=== PATIENT | female | born 1950 | race Caucasian/White ===

== ENCOUNTER 2024-06-02 13:15 | Outpatient (RCR) | payer MEDICARE, SELFPAY ==
[2024-05-19 13:09] VITALS: BP 172/93; PULSE 84; RESP 18; TEMP 36.1
--- NOTE | 2024-05-19 14:21 | HP.PCM_ITS ---
History of Present Illness Date of Service: 05/19/24 Chief Complaint: Right leg erythema/rash History of Wound: Patient is a 73-year-old female who was referred by Dr. Alexei Kerr ([facility] [address]) for a cellulitis on her left leg. She has a torn meniscus and is in need of surgery, but she is not able to have a wound at the time of the surgery. She states that she first noticed the area 2-3 months ago. She thought it was poison prem. She states that her had a similar patch on his arm and then she noticed it on her leg. She saw Dr. Kerr a couple weeks ago and he referred her to us for her cellulitis. Her PCP placed her on Doxycycline, which she has completed. Since seeing him she has been placing Triamcinolone cream on the area for the past week and it has resolved the rash. She has a history of HTN and Hypothyroidism. She denies fever, chills, nausea or vomiting. Progress of Wound: Left anterior leg just distal to her knee there is a patch of slight redness, no pustules. [facility] Medical History (Updated 05/22/24 @ 21:44 by Luz Santos OYSTER BUYER, OYSTER BUYER-C) Hypertension Hypothyroid Family History (Updated 05/22/24 @ 21:16 by Luz Santos NP, OYSTER BUYER-C) Mother CVA (cerebral vascular accident) Father Cancer Brother Cancer Social History (Updated 05/22/24 @ 21:17 by Luz Santos NP, OYSTER BUYER-C) Smoking Status: Never smoker ROS Constitutional Constitutional: Denies chills or fever(s) Eyes Eyes: Reports requires corrective lenses ENT HEENT: Reports none Cardiovascular Cardiovascular: Denies chest pain, dyspnea or leg edema Respiratory/Chest Respiratory/Chest: Denies cough or dyspnea Gastrointestinal Gastrointestinal: Reports none Genitourinary Genitourinary: Reports none Musculoskeletal Musculoskeletal: Reports difficulty walking, joint pain and joint stiffness Integumentary Integumentary: Reports rash Neurologic Neurologic: Reports none Psychiatric Psychiatric: Reports none Endocrine Endocrinology: Reports as per HPI Hematologic/Lymphatic Hematologic/Lymphatic: Reports none Allergic/Immunologic Allergic/Immunologic: Reports none Vital Signs Vital Signs Vital Signs: 05/19/24 13:09 Temperature 97 F L Temperature Source Temporal Pulse Rate 84 Respiratory Rate 18 Blood Pressure 172/93 H Blood Pressure Mean 119 Blood Pressure Source Monitor Blood Pressure Position Sitting Blood Pressure Location Left Arm Oxygen Delivery Method Room Air Physical Exam Const alert, oriented x3 and no apparent distress General Appearance: cooperative and well kempt Orientation / Consciousness: awake HEENT normocephalic Head and Scalp: atraumatic Eyes General Eye: normal appearance of both eyes Neck full ROM Resp normal respiratory effort, normal air movement and clear to auscultation bilaterally Effort and Inspection: able to speak in complete sentences Cardio regular rate and regular rhythm GI soft to palpation and non-tender Back/Spine normal ROM Extremity normal capillary refill Peripheral Pulses: Yes pulses 2+ throughout Skin Skin Narrative: Left proximal anterior leg has mild erythema. Area is slightly raised. No pustules. Area almost resolved with use of Triamcinolone cream. No clinical sign of infection. Neuro oriented x3 Psych mental status grossly normal, thought process normal and cooperative Debridement Note Debridement Note No debridement was completed: No debridement was completed today Post-Debridement Measurements and Additional Note: Post-Debridement Measurements/Treatment - Nurse 1 - General Ulcer Assessment Start: 05/19/24 13:08 Freq: Status: Active Protocol: OMAR Activity Type Activity Date Activity User E-sign Co-sign Detail Recorded Client Recorded Date Recorded By Document 05/19/24 13:09 MI [id number] 05/19/24 13:27 MI 05/19/24 13:09 - Today's Visit Information Type of service Follow-up Visit (Physician/[facility] APPRENTICE ) Arrival Mode Ambulatory Accompanied by dina friend Patient Identification Verified (Name & Yes ) Safety Precautions Fall Prevention Vital Signs Temperature (97.8 F-99.1 F) 97 F L Temperature Source Temporal Pulse Rate (60-100) 84 Pulse Location Monitor Respiratory Rate (12-18) 18 Respiratory rate source Observation Oxygen Delivery Method Room Air Blood Pressure (90/60-120/80) 172/93 H Blood Pressure Mean 119 Source Monitor Position Sitting Blood Pressure Location Left Arm History Since Last Visit- (Skip if this is Patient's initial visit) Has dressing in place as prescribed Yes Has compression in place as prescribed Yes Has offloadiing in place as prescribed Yes Experienced any changes in pain level or Yes management Left Footwear Regular Shoe Right Footwear Regular Shoe Pain Scale: 0-10 Numeric Is Patient Pain Free? Yes - Nurse 1 - General Ulcer Measurement Start: 05/19/24 13:08 Freq: Status: Active Protocol: Activity Type Activity Date Activity User E-sign Co-sign Detail Recorded Client Recorded Date Recorded By Document 05/19/24 13:09 MI [id number] 05/19/24 13:27 MI 05/19/24 13:09 Wound Center Nurse 1 #1 Left Lower [place] -Current Size (cm) - Length 0.1 -Current Size (cm) - Width 0.1 -Current Size (cm) - Depth 0.1 -Total Square Cm 0.01 -Date of Last Picture (Recall this 05/19/24 field) -Photo Taken Yes -Tunneling No -Undermining/Tunneling No -Circular Undermining No -Exudate Amt None Present -Wound Margin Flat & Intact -Granulation Amt None Present (0 %) -Slough/Fibrin No -Texture (Destiney-wound Skin Appearance) Assessed -Moisture (Destiney-wound Skin Appearance) Assessed -Color (Destiney-wound Skin Appearance) No Abnormality -Temperature (Destiney-wound Skin No Abnormality Appearance) (Pt Warm) -Tenderness on Palpation (Destiney-wound No Skin Appearance) -Ulcer Cleansing Rinsed/ Irrigated with Saline -Foul Odor after Cleansing No -Anesthetic Used 5% Lidocaine Gel WC - Nurse 2 - General Ulcer CM Notes Start: 05/19/24 13:08 Freq: Status: Active Protocol: Activity Type Activity Date Activity User E-sign Co-sign Detail Recorded Client Recorded Date Recorded By Document 05/19/24 13:31 [id number] 05/19/24 13:36 05/19/24 13:31 Wound Center Nurse 2 -Time 13:32 -Correct Patient Yes -Correct Side, Site, Position Yes -Wound Comment(s) No wound red area 0.5 x 3.0 Pain Scale: 0-10 Numeric Is Patient Pain Free? Yes - Nurse 3 - General Ulcer D/C NN Start: 05/19/24 13:08 Freq: Status: Active Protocol: Activity Type Activity Date Activity User E-sign Co-sign Detail Recorded Client Recorded Date Recorded By Document 05/19/24 13:39 [id number] 05/19/24 13:39 05/19/24 13:39 Is Patient Pain Free? Yes - Visit Discharge Discharge Condition Stable Ambulatory Status Ambulatory Transportation Private Auto Charges/Coding Visit Charges Office Visits / Consults: [id number] OV L3 New 30min Assessment/Plan Assessment/Plan (1) Rash and nonspecific skin eruption: CODE(S): R21 - Rash and other nonspecific skin eruption PLAN: Plan Patient evaluated at the wound healing center. She has been using Triamcinolone cream daily on the area twice daily and has been having improvement in the area. Will have her continue to use the cream for an additional week. She will stop using the cream for a week after that. She will follow up 2 weeks with me so I can re-evaluate the area to see if it needs further treatment.
--- NOTE | 2024-05-20 11:28 | WC ---
PHOTO 05/19/24 LEFT MENDES
[2024-06-02 13:22] VITALS: BP 168/80; PULSE 97; RESP 16; TEMP 36.1
--- NOTE | 2024-06-02 16:44 | PN.PCM_ITS ---
History of Present Illness Date of Service: 06/02/24 Chief Complaint: Right leg erythema/rash History of Wound: Patient is a 73-year-old female who was referred by Dr. Alexei Kerr (ortho) for a cellulitis on her left leg. She has a torn meniscus and is in need of surgery, but she is not able to have a wound at the time of the surgery. She states that she first noticed the area 2-3 months ago. She thought it was poison prem. She states that her had a similar patch on his arm and then she noticed it on her leg. She saw Dr. Kerr a couple weeks ago and he referred her to us for her cellulitis. Her PCP placed her on Doxycycline, which she has completed. Since seeing him she has been placing Triamcinolone cream on the area for the past week and it has resolved the rash. She has a history of HTN and Hypothyroidism. She denies fever, chills, nausea or vomiting. Progress of Wound: Left anterior leg just distal to her knee the patch of slight redness resolved with the use of the triamcinolone cream. She has not used the cream in over a w torres martinez. She is healed. Objective Data Objective Data Vital Signs: Vital Signs Temp Pulse Resp BP O2 Del Method 97 F L 97 16 168/80 H Room Air 06/02/24 13:22 06/02/24 13:22 06/02/24 13:22 06/02/24 13:22 06/02/24 13:22 Oxygen Delivery Method Room Air Charges/Coding Visit Charges Office Visits / Consults: [id number] OV L2 Est 10min Physical Exam Const alert, oriented x3 and no apparent distress General Appearance: cooperative and well kempt Orientation / Consciousness: awake HEENT normocephalic Head and Scalp: atraumatic Eyes General Eye: normal appearance of both eyes Neck full ROM Resp normal respiratory effort, normal air movement and clear to auscultation bilaterally Effort and Inspection: able to speak in complete sentences Cardio regular rate and regular rhythm Back/Spine normal ROM Extremity normal capillary refill Peripheral Pulses: Yes pulses 2+ throughout Skin Skin Narrative: Left proximal anterior leg erythema has resolved. Neuro oriented x3 Psych mental status grossly normal, thought process normal and cooperative Assessment/Plan Assessment/Plan (1) Rash and nonspecific skin eruption: CODE(S): R21 - Rash and other nonspecific skin eruption PLAN: Plan Patient evaluated at the wound healing center. She stopped using the Triamcinolone cream over a week ago and she remains completely healed. She may now follow up with Dr. Kerr to discuss her options for her treatment for her knee. Follow up as needed .
== END 2024-06-02 16:33 | disposition home or self-care (01) ==
LOC: WC 13:15
PROVIDERS: Visit Provider Nurse Practitioner Family
DX: R21 Rash and other nonspecific skin eruption (principal); I10 Essential (primary) hypertension
CPT/HCPCS: 99203; 99212; G0463

== ENCOUNTER → 2024-12-21 | Outpatient (CLI) | payer MEDICARE, SELFPAY ==
--- NOTE | 2024-12-21 13:44 | VDLE_ITS ---
Reason For Study Reason For Study: BLE Swelling RIGHT LEFT CFV is compressible, spontaneous, phasic, competent CFV is compressible, phasic, and INCOMPETENT for and demonstrates normal augmentation. greater than 1.0 second. FV is compressible, spontaneous, phasic, competent FV is compressible, spontaneous, phasic, competent and demonstrates normal augmentation. and demonstrates normal augmentation. POP V is compressible, spontaneous, phasic, competent POP V is compressible, spontaneous, phasic, competent and demonstrates normal augmentation. and demonstrates normal augmentation. T/P Trunk is compressible. T/P Trunk is compressible. PTV is compressible. PTV is compressible. RT PerV is compressible. LT PerV is compressible. SFJ is INCOMPETENT and measures 0.96 cm. SFJ is INCOMPETENT and measures 0.87 cm. GSV proximal thigh measures 0.25 x 0.28 cm. GSV proximal thigh measures 0.39 x 0.36 cm. GSV at knee measures 0.60 x 0.73 cm. GSV at knee measures 0.65 x 0.59 cm. GSV INCOMPETENT throughout for greater than 0.5 GSV INCOMPETENT throughout for greater than 0.5 seconds. seconds. ASV proximal thigh is INCOMPETENT for greater than Perforating vessel distal calf is INCOMPETENT for 0.5 seconds and measures 0.67 x 0.69 cm. greater than 0.5 seconds and measures 0.41 cm. ASV proximal calf is INCOMPETENT for greater than 0.5 SSV mid calf is competent and measures 0.23 x 0.26 seconds and measures 0.44 x 0.50 cm. cm. Perforating vessel distal calf is INCOMPETENT for greater than 0.5 seconds and measures 0.41 cm. SSV mid calf is competent and measures 0.31 x 0.30 cm. Procedure Exam performed in department. This is a venous duplex using B-mode, color flow and spectral Doppler. The exam was diagnostic. Patient was scanned in reverse Trendelenburg position during reflux assessment. VL/Venous Duplex US - Rolando Extrem Interpretation Summary Deep veins of the bilateral lower extremities are patent and compressible segme ntally. There is no evidence of bilateral lower extremity deep vein thrombosis. The bilateral great saphenous veins appea r patent and compressible segmentally. Positive for reflux in the right saphenofemoral junction, great saphenous vein throughout, accessory saphenous vein in thigh, accessory saphenous vein in calf, brush cleaner vein distal calf. Positive for reflux in the left common femoral vein, saphenofemoral junction, g reat saphenous vein throughout, brush cleaner vein in distal calf. Ordering Physician: Lisbeth Fairchild Referring Physician: Priya Garcia Performed By: Jose Alejandro Martinez RVT
== END | disposition home or self-care (01) ==
LOC: CVS 13:43
PROVIDERS: Referring Provider Physician Assistant; Visit Provider Physician Assistant
DX: R60.0 Localized edema (principal); I87.2 Venous insufficiency (chronic) (peripheral)
CPT/HCPCS: 93970

== ENCOUNTER 2025-05-05 10:12 | Day surgery (SDC) | payer MEDICARE, SELFPAY ==
[2025-05-04 10:29] VITALS: BMI 40.8
--- NOTE | 2025-05-05 12:27 | HP.PCM_ITS ---
HPI - General HPI Narrative MARCO PARSONS, is a 74 F who presents with venous insufficiency with stasis dermatitis, worsening despite compression. [facility] Medical History Hypertension Hypothyroid Home Medications ?Medication ?Instructions ?Recorded ?Last Taken ?Type levothyroxine 75 mcg tablet 75 mcg PO QDAY 12/08/24 Un known History losartan 50 mg tablet 50 mg PO QDAY 12/08/24 Unkno wn History Allergy/AdvReac Type Severity Reaction Status Date / Time latex Allergy Other Verified 02/16/25 10:45 Penicillins Allergy Rash Verified 02/16/25 10:45 Family History Mother CVA (cerebral vascular accident) Father Cancer Brother Cancer Social History Smoking Status: Former smoker Tobacco: How many years used: 30 ROS Constitutional Constitutional: Denies chills, fever(s), frequent falls, lethargy or weakness Eyes Eyes: Denies blind spots, change in vision or loss of vision ENT HEENT: Denies bleeding gums, hoarseness or sore throat Cardiovascular Cardiovascular: Denies abdominal pain, bluish discoloration of hand/feet, chest pain with activity, claudication, cold extremities, cyanosis, dyspnea on exertion, erythema on extremities, irregular heart rhythm, leg edema, leg ulcers, numbness in extremities or weakness in extremities Respiratory/Chest Respiratory/Chest: Denies cough, excessive phlegm production, shortness of breath at rest, shortness of breath with exertion or wheezing Gastrointestinal Gastrointestinal: Denies anorexia, change in stool character, constipation, diarrhea, melena or rectal bleeding Genitourinary Genitourinary: Denies dysuria or hematuria Musculoskeletal Musculoskeletal: Denies abnormal gait Integumentary Integumentary: Reports other Details: ; Denies erythema, non-healing lesions or wounds Neurologic Neurologic: Denies abnormal speech, focal weakness, headache(s), loss of vision, numbness, paresthesias or sensory deficit Hematologic/Lymphatic Hematologic/Lymphatic: Denies easy bleeding, easy bruising or lymphadenopathy Vital Signs Vital Signs Vital Signs: Weight Weight: 223 lb Body Mass Index (BMI) 40.8 Physical Exam Const alert, oriented x3, no apparent distress and healthy appearing General Appearance: cooperative; Negative for combative or lethargic Orientation / Consciousness: awake Exam Limitations: no limitations HEENT Head and Scalp: normocephalic and atraumatic Eyes EOMs intact bilaterally General Eye: normal appearance of both eyes Neck full ROM, no lymphadenopathy, thyroid normal and No no carotid bruits General: trachea midline; Negative for lymphadenopathy or tenderness Thyroid: thyroid normal Lymph Lymphatic: Negative for no lymphadenopathy noted Resp normal respiratory effort and no use of accessory muscles Effort and Inspection: Negative for labored, stridor or audible wheezes Cardio regular rate and regular rhythm Back/Spine Cervical Spine: cervical ROM normal Extremity full ROM, normal capillary refill and no clubbing, cyanosis or edema Skin no rashes or lesions noted Neuro oriented x3, CN's II-XII intact bilaterally, no focal motor deficits and no sensory deficits noted Psych thought process normal, cooperative, affect normal, speech normal and activity/motor behavior normal Assessment & Plan Assessment/Plan (1) Venous insufficiency: PLAN: -with stasis dermatitis -GSV chemical ablation
--- NOTE | 2025-05-05 17:42 | OP.PCM_ITS ---
Operative Report (Standard) Operative Information Date of Procedure: 05/05/25 Pre-Operative Diagnosis: venous insufficiency with stasis dermatitis, left lower extremity Post-Operative Diagnosis: same Surgery/Procedure Performed: left great saphenous chemical ablation engineer chief: No Type of Anesthesia: Local and Sedation,Conscious Procedure Start Time: 12:30 Procedure Stop Time: 13:00 Select all DRAINS/GRAFTS/IMPLANTS that apply: None Estimated Blood Loss: 1 Specimen collected: No Description of surgery: HPI: Patient is a 74-year-old female with venous insufficiency with stasis dermatitis of left lower extremity which has worsened despite compression stockings. She has great saphenous vein reflux throughout so she presents now for chemical ablation. Description of procedure: Upon obtaining informed consent and verification correct patient procedure site the patient was taken to the Floor Care Technician where she was positioned prepped and draped in usual sterile fashion. Timeout was performed consultation ministered Versed and fentanyl. The right side of the vein was evaluated ultrasound found to be continuous with no significant branching or tortuosity. Skin overlying the great saphenous vein at the ankle was anesthetized 1% lidocaine the vessel accessed under ultrasound guidance with a micropuncture needle wire. This then exchanged for the 7 Bengali ablation sheath which was advanced without resistance. Through the sheath a [employer] wire was advanced under ultrasound guidance to the saphenofemoral junction. Over the wire the glue delivery guide was advanced and positioned inferior to the saphenofemoral junction per cooker mechanic's instructions. The wire and dilator were then withdrawn and the glue delivery catheter advanced into position and appropriate distance from the saphenofemoral junction. Glue was then deposited along the treatment zone from inferior to the saphenofemoral junction to just above the sheath. Upon completion the saphenofemoral junction was interrogated and found to be patent with no evidence of blue or thrombus in the junction or the deep system. The sheath was then withdrawn and manual pressure held until hemostasis was observed. Dry sterile dressing and Latrell wrap were then applied the patient was taken to recovery with plan discharge to home. Surgical Findings: see above Complications Complications: No
== END 2025-05-05 13:10 | disposition home or self-care (01) ==
PROVIDERS: Referring Provider Surgery Trauma Surgery; Visit Provider Surgery Trauma Surgery
DX: I87.2 Venous insufficiency (chronic) (peripheral) (principal); Z87.891 Personal history of nicotine dependence; I10 Essential (primary) hypertension
CPT/HCPCS: 36482; C1894

== ENCOUNTER → 2025-05-09 | Outpatient (CLI) | payer MEDICARE, SELFPAY ==
--- NOTE | 2025-05-09 09:49 | VDLE_ITS ---
Reason For Study Reason For Study: s/p Ablation RIGHT LEFT CFV is compressible, spontaneous, phasic, competent Lt GSV is occluded s/p Venaseal, 4.56cm from SFJ. and demonstrates normal augmentation. CFV is compressible, spontaneous, phasic, competent, Procedure and demonstrates normal augmentation. This is a venous duplex using B-mode, color flow and FV is compressible, spontaneous, phasic, competent spectral Doppler. and demonstrates normal augmentation. Exam performed in department. POP V is compressible, spontaneous, phasic, competent A preliminary report was called and/or faxed to and demonstrates normal augmentation. Lisbeth JOYNER. T/P Trunk is compressible. PTV is compressible. LT PerV is compressible. VL/Venous Duplex US, Unilateral Interpretation Summary Deep veins of the left lower extremity are patent and compressible segmentally. There is no evidence of left lower extremity deep vein thrombosis. Left great saphenous vein occluded consistent with recent ablation. Ordering Physician: Lisbeth Fairchild Referring Physician: Priya Garcia Performed By: Vangie Agosto, FRED, RVT
== END | disposition home or self-care (01) ==
LOC: CVS 09:46
PROVIDERS: Referring Provider Physician Assistant; Visit Provider Physician Assistant
DX: Z48.812 Encounter for surgical aftercare following surgery on the circulatory system (principal); I87.2 Venous insufficiency (chronic) (peripheral)
CPT/HCPCS: 93971